=== PATIENT | female | born 1960 | race Caucasian/White ===

== ENCOUNTER 2017-02-12 08:20 | Emergency (ER) | payer OTHER ==
[2017-02-12] MEDS ORDERED: IBUPROFEN 400 MG TABLET (FP) PO ONE ×2 (08:27→08:52)
[2017-02-12] MEDS ORDERED: DIPHTH,PERTUSS(ACELL),TET 0.5 ML DISP.SYRIN IM ONE (08:27)
--- NOTE | 2017-02-12 08:27 | PDOC ---
History of Present Illness - General Chief Complaint: Injury Stated Complaint: FALL Time Seen by Provider: 02/12/17 08:27 History Source: Patient Exam Limitations: No Limitations - History of Present Illness Initial Comments: 02/12/17 08:28 56y F no pmhx presents s/p fall. The pt states she was feeling well this morning and was well when she stumbled on uneven pavement. She fell with her arm ont he ground and landed with her face onto the ground. The pt denies any headache, dizziness, vision changes, palpitations, chest pain, sob, abd pain, neck pain, back pain, numbness/tingling/weakness prior to or after the fall. The pt is endorsing some pain to her L pinky finger. PMD: in [place], does not recall the name Past History - Past Medical History Allergies/Adverse Reactions: Allergies Allergy/AdvReac Type Severity Reaction Status Date / Time No Known Allergies Allergy Verified 02/12/17 08:23 Home Medications: Ambulatory Orders Ibuprofen 600 mg PO PRN PRN 02/12/17 Review of Systems - Review of Systems Able to Perform ROS?: Yes Comments:: 02/12/17 08:30 Constitutional - no reported Fever, Chills, HEENT: no reported vision changes, sore throat Respiratory: no reported cough, sob, hemoptysis Cardiac: no reported chest pain, palpitations, light headedness, leg swelling Abd/GI: no reported abd pain, nausea, vomiting, blood per rectum, melena, diarrhea : no reported dysuria, frequency, discharge Musculskelatal - +finger pain no reported back pain, joint swelling skin - +Abrasions no reported bruising, erythema, rash neurological: no reported headache, numbness, focal weakness, tingling, ataxia, hematologic: no reported anemia, easy bruising, easy bleeding *Physical Exam - Physical Exam Comments: 02/12/17 08:31 GENERAL: The patient is awake, alert, and fully oriented, Nontoxic - in no acute distress. HEAD: Normocephalic, abrasions to bridge of nose, L forehead/cheek, chin, EYES: extraocular movements intact, sclera anicteric, conjunctiva clear. ENT: Normal voice, Moist mucous membranes. NECK: Normal range of motion, supple, no focal tenderness in midline cervical/ thoracic/lumbar region LUNGS: Breath sounds equal, clear to auscultation bilaterally. No wheezes, no rhonchi, no rales. HEART: Regular rate and rhythm, normal S1 and S2 without murmur, rub or gallop. ABDOMEN: Soft, nontender, normoactive bowel sounds. No guarding, no rebound. . No CVA tenderness EXTREMITIES: no edema. No clubbing or cyanosis. No cords, erythema, or tenderness, very superficial abrasion of L knee, abrasion of L palm, no focal bony tenderness of b/l hips/knees/valdez/ankle, shoulders, elbow, wrist, hands, + localized tenderness of proximal L ring finger, unable to range L pinky due to pain +diffuse tendenress, , no tenderness on axial loading of wrist, no snuff box tenderness NEUROLOGICAL: No facial assymetry, Normal speech, PSYCH: Normal mood, normal affect. SKIN: Warm, Dry, normal turgor, Procedures - Consent Consent obtained: Verbal - Splinting Splint Location: Left: Finger Pre-Proc Neuro Vasc Exam: normal Hand-Made Type: orthoglass Splint Type: Yes: Ulnar Post-Proc Neuro Vasc Exam: normal Marco Bandage: 4" Sling: Yes Complications: No Good repositioning: Yes Medical Decision Making - Medical Decision Making 02/12/17 09:09 xray noted for displaced transverse fx of proximal 5th proximal phalanx likely will splint but will consult ortho 02/12/17 10:12 pt splinted in marzena antoine case dw dr. lujan The patient's abrasions were cleansed and bacitracin was applied. Return precautions including signs of infection were discussed with the patient agree with marzena antoine will refer to ortho tomorrow or fri for further management and possible surgery I discussed the physical exam findings, ancillary test results and final diagnoses with the patient. I answered all of the patient's questions. The patient was satisfied with the care received and felt comfortable with the discharge plan and treatment plan. The patient will call their primary care physician within 24 hours to arrange follow-up and will return to the Emergency Department with any new, persistent or worsening symptoms. 02/12/17 10:26 *DC/Admit/Observation/Transfer Diagnosis at time of Disposition: Facial abrasion Qualifiers: Encounter type: initial encounter Qualified Code(s): S00.81XA - Abrasion of other part of head, initial encounter Closed fracture of proximal phalanx of digit of left hand Qualifiers: Encounter type: initial encounter Qualified Code(s): S62.619A - Displaced fracture of proximal phalanx of unspecified finger, initial encounter for closed fracture - Discharge Dispostion Disposition: HOME Condition at time of disposition: Improved Admit: No - Referrals Referrals: Greg Lujan MD [Staff Physician] - - Patient Instructions Printed Discharge Instructions: DI for Finger Fracture, DI for Abrasion Additional Instructions: Return to the emergency department immediately with ANY new, persistent or worsening symptoms. Apply bacitracin to your abrasions twice daily. clean gently with soap and water prior to application of bacitracin. If there is any redness, warmth, drainage there may be infection see your primary care doctor or come to the ER for reevaluation. There is a fracture of your pinky, continue using the splint and sling until you follow up with orthopedics for further management of your fracture. Take ibuprofen or Tylenol for your pain. Your tetanus was updated. You MUST call and make an appointment with Dr. Lujan or Dr. Young tomorrow or friday for further evaluation of your fracture. Results were discussed with you. Please make sure your doctor reviews the results of your emergency evaluation. Print Language: [id number]
[2017-02-12 08:30] VITALS: BP 129/94; PULSE 74; TEMP 98.7; BMI 30.7
== END 2017-02-12 10:32 | disposition home or self-care (01) ==
LOC: FER 08:20
PROC: 2W3KX1Z Immobilization of Left Finger using Splint (ICD-10-PCS; principal; 2017-02-12)
DX: S62.619A Displaced fracture of proximal phalanx of unspecified finger, initial encounter for closed fracture (principal); S00.81XA Abrasion of other part of head, initial encounter; W18.39XA Other fall on same level, initial encounter; Y93.89 Activity, other specified; Y92.9 Unspecified place or not applicable
CPT/HCPCS: 73140-TC-LT; 90715; 99282-25